=== PATIENT | female | born 1995 | race Two or more races ===

== ENCOUNTER 2024-01-17 04:06 | Emergency (ER) | payer MEDICAID ==
[~2024-01-17] VITALS: Ht 152.4 cm; Wt 73.0 kg
[2024-01-17 06:03] LABS: Basophils # (auto) 0.1 10 ^3/uL (0-0.2); Basophils % (auto) 0.5 % (0.0-2.0); Eosinophils # (auto) 0.2 10 ^3/uL (0-0.8); Hemoglobin 11.9 g/dL (12.2-16.2); Lymphocytes # (auto) 3.1 10 ^3/uL (0.4-5.4); Lymphocytes % (auto) 31.2 % (10.0-50.0); Mean Corpuscular Hemoglobin 29.5 pg (28.0-32.0); Mean Corpuscular Hgb Conc. 33.9 g/dL (32.0-36.0); Mean Corpuscular Volume 86.9 fL (80.0-100.0); Monocytes # (auto) 0.7 10 ^3/uL (0-1.3); Neutrophils # (auto) 5.9 10 ^3/uL (1.6-8.6); Neutrophils % (auto) 59.3 % (37.0-80.0); Nucleated Red Blood Cells % 0.1 %; Red Blood Cells 4.03 10^6/uL (4.0-5.20); Red Cell Distribution Width 14.4 % (11.8-14.3); White Blood Cell 9.9 10^3/uL (4.4-10.8)
[2024-01-17 06:10] VITALS: PULSE 87; RESP 16; O2SAT 97
[2024-01-17 06:17] LABS: INR 0.96 (0.9-1.15); Partial Thromboplastin Time 25.8 SEC (24.5-34.5); Prothrombin Time 10.2 sec (9.3-11.8)
[2024-01-17 06:18] LABS: Alanine Aminotransferase 27 U/L (7-40); Albumin 3.8 g/dL (3.2-4.8); Alkaline Phosphatase 104 U/L (46-116); Anion Gap 7 (5-15); Aspartate Aminotransferase 19 U/L (13-40); BUN/Creatinine Ratio 16.7 (10.0-20.0); Bilirubin, Total 0.4 mg/dL (0.2-1.0); Blood Urea Nitrogen 8 mg/dL (9-23); Calcium 8.9 mg/dL (8.7-10.4); Carbon Dioxide 23 mmol/L (20-30); Chloride 107 mmol/L (98-107); Glucose 103 mg/dL (74-106); Lipase 48 U/L (12-53); Potassium 3.8 mmol/L (3.5-5.1); Sodium 137 mmol/L (136-145); Total Protein 6.1 g/dL (5.7-8.2)
[2024-01-17] MEDS: SODIUM CHLORIDE 0.9% 1,000 ML IVB ONE (06:44)
[2024-01-17] MEDS: ONDANSETRON HCL 4 MG/2 ML VIAL IV ONE (06:44)
[2024-01-17] MEDS: MORPHINE SULFATE INJ 2 MG/ml SYRG IV ONE (06:45)
[2024-01-17 07:25] LABS: Urine Bacteria FEW /hpf (None Seen); Urine Blood TRACE /uL (Negative); Urine Clarity Turbid (Clear); Urine Color Light-Yellow (Yellow); Urine Mucus FEW (None Seen); Urine Protein, UAD TRACE (Negative); Urine Specific Gravity 1.016 (1.001-1.035); Urine Urobilinogen Normal (Negative); Urine WBC 2 /hpf (0 - 5); Urine pH 6.5 (5.0-9.0)
[2024-01-17 09:00] VITALS: BP 120/65; PULSE 80; RESP 20; TEMP 97.6; O2SAT 96
== END 2024-01-17 09:47 | disposition home or self-care (01) ==
LOC: ER 04:06
DX: Z34.02 Encounter for supervision of normal first pregnancy, second trimester (principal); R10.9 Unspecified abdominal pain; Z3A.17 17 weeks gestation of pregnancy
CPT/HCPCS: 36415; 76805; 80053; 81001; 83690; 84702; 85025; 85610; 85730; 96361; 96374; 96375; 99285; J2270; J2405; J7030

== ENCOUNTER → 2024-03-27 | Outpatient (CLI) | payer MEDICAID ==
[2024-03-27 09:11] LABS: Basophils # (auto) 0 10 ^3/uL (0-0.2); Basophils % (auto) 0.4 % (0.0-2.0); Eosinophils # (auto) 0.1 10 ^3/uL (0-0.8); Eosinophils % (auto) 1.5 % (0.0-7.0); Hematocrit 35.8 % (36.0-46.0); Hemoglobin 12.1 g/dL (12.2-16.2); Lymphocytes % (auto) 20.4 % (10.0-50.0); Mean Corpuscular Hemoglobin 30.1 pg (28.0-32.0); Mean Corpuscular Hgb Conc. 33.8 g/dL (32.0-36.0); Mean Corpuscular Volume 89.1 fL (80.0-100.0); Monocytes # (auto) 0.7 10 ^3/uL (0-1.3); Monocytes % (auto) 6.7 % (0.0-12.0); Neutrophils # (auto) 6.9 10 ^3/uL (1.6-8.6); Nucleated Red Blood Cells % 0.1 %; Red Blood Cells 4.02 10^6/uL (4.0-5.20); Red Cell Distribution Width 13.8 % (11.8-14.3); White Blood Cell 9.8 10^3/uL (4.4-10.8)
[2024-03-27 09:16] LABS: Alanine Aminotransferase 19 U/L (7-40); Albumin 3.8 g/dL (3.2-4.8); Alkaline Phosphatase 122 U/L (46-116); Anion Gap 7 (5-15); Aspartate Aminotransferase 16 U/L (13-40); Calcium 9.1 mg/dL (8.5-10.1); Carbon Dioxide 20 mmol/L (20-30); Chloride 110 mmol/L (98-107); Glucose 94 mg/dL (74-106); Potassium 3.7 mmol/L (3.5-5.1); Sodium 137 mmol/L (136-145)
[2024-03-27 09:17] LABS: Bilirubin, Total 0.4 mg/dL (0.2-1.0); Total Protein 6.3 g/dL (5.7-8.2)
[2024-03-27 09:18] LABS: BUN/Creatinine Ratio 12.5 (10.0-20.0); Blood Urea Nitrogen < 5 mg/dL (9-23)
[2024-03-28 07:06] LABS: RPR Non Reactive (Non Reactive)
[2024-03-28 15:07] LABS: Chlamydia Trachomatis, NAA Negative (Negative); Neisseria gonorrhoeae, NAA Negative (Negative)
== END | disposition home or self-care (01) ==
LOC: LAB 08:36
PROVIDERS: ATTEND Obstetrics & Gynecology
DX: M25.552 Pain in left hip (principal); M25.751 Osteophyte, right hip; M11.251 Other chondrocalcinosis, right hip; M16.11 Unilateral primary osteoarthritis, right hip
CPT/HCPCS: 36415; 80053; 82951; 83036; 85025; 86592; 86850; 86900; 86901

== ENCOUNTER 2024-05-10 14:10 | Observation (INO) | payer MEDICAID ==
[~2024-05-10] VITALS: Ht 152.4 cm; Wt 81.2 kg
[2024-05-10] MEDS ORDERED: PREN-96 PO (14:31)
[2024-05-10] MEDS: TERBUTALINE SULFATE 1 MG/ML 1ML VIAL SC SCH (15:51)
== END 2024-05-10 16:51 | disposition home or self-care (01) ==
LOC: LDRP 14:10
PROVIDERS: ADMIT Obstetrics & Gynecology; ATTEND Obstetrics & Gynecology
DX: O24.419 Gestational diabetes mellitus in pregnancy, unspecified control (principal); O62.9 Abnormality of forces of labor, unspecified; Z3A.34 34 weeks gestation of pregnancy
CPT/HCPCS: 59025; 76818; 81002; 82948; 82962; 94760; 96372; G0378; J3105

== ENCOUNTER 2024-05-14 14:13 | Observation (INO) | payer MEDICAID ==
[~2024-05-14] VITALS: Ht 152.4 cm; Wt 81.6 kg
[~2024-05-14 14:13] MED LIST: PREN-96 PO
[2024-05-14] MEDS: NIFEdipine 10 MG CAP PO ONE (16:00)
== END 2024-05-14 16:55 | disposition home or self-care (01) ==
LOC: LDRP 14:13
PROVIDERS: ADMIT Obstetrics & Gynecology; ATTEND Obstetrics & Gynecology
DX: O47.03 False labor before 37 completed weeks of gestation, third trimester (principal); O24.410 Gestational diabetes mellitus in pregnancy, diet controlled; Z3A.34 34 weeks gestation of pregnancy; Z79.899 Other long term (current) drug therapy
CPT/HCPCS: 59025; 76815; 76818; 81002; 82948; 82962; 94760; G0378

== ENCOUNTER 2024-05-17 09:10 | Observation (INO) | payer MEDICAID ==
[~2024-05-17] VITALS: Ht 152.4 cm; Wt 72.1 kg
[2024-05-17] MEDS: TERBUTALINE SULFATE 1 MG/ML 1ML VIAL SC SCH (10:35)
== END 2024-05-17 11:11 | disposition home or self-care (01) ==
LOC: UNDOADMOB 09:10 → LDRP 09:10 → UNDODISOB 11:11
PROVIDERS: ADMIT Obstetrics & Gynecology; ATTEND Obstetrics & Gynecology
DX: O24.419 Gestational diabetes mellitus in pregnancy, unspecified control (principal); Z3A.34 34 weeks gestation of pregnancy
CPT/HCPCS: 59025; 76818; 81002; 82948; 82962; 94760; G0378; 96372

== ENCOUNTER 2024-05-21 10:17 | Observation (INO) | payer MEDICAID | END 2024-05-21 13:12 | disposition home or self-care (01) | LOC: LDRP 12:05 | PROVIDERS: ADMIT Obstetrics & Gynecology; ATTEND Obstetrics & Gynecology | DX: O24.419 Gestational diabetes mellitus in pregnancy, unspecified control (principal); O62.9 Abnormality of forces of labor, unspecified; Z3A.35 35 weeks gestation of pregnancy | CPT/HCPCS: 59025; 76818; 81002; 82948; 82962; G0378 ==

== ENCOUNTER 2024-05-28 04:30 | Observation (INO) | payer MEDICAID | END 2024-05-28 13:32 | disposition home or self-care (01) | LOC: UNDOADMOB 12:10 → LDRP 12:10 | PROVIDERS: ADMIT Obstetrics & Gynecology; ATTEND Obstetrics & Gynecology | DX: O24.419 Gestational diabetes mellitus in pregnancy, unspecified control (principal); Z3A.36 36 weeks gestation of pregnancy | CPT/HCPCS: 59025; 76818; 81002; 82948; 82962; 94760; G0378 ==

== ENCOUNTER 2024-06-05 09:02 | Observation (INO) | payer MEDICAID | END 2024-06-05 10:08 | disposition home or self-care (01) | LOC: UNDOADMOB 09:02 → LDRP 09:02 → UNDODISOB 10:08 | PROVIDERS: ADMIT Obstetrics & Gynecology; ATTEND Obstetrics & Gynecology | DX: O24.419 Gestational diabetes mellitus in pregnancy, unspecified control (principal); Z3A.37 37 weeks gestation of pregnancy; Z79.899 Other long term (current) drug therapy | CPT/HCPCS: 59025; 76818; 81002; 82948; 82962; 94760; G0378 ==

== ENCOUNTER 2024-06-12 05:54 | Observation (INO) | payer MEDICAID ==
[2024-06-12 10:29] LABS: Urine Bacteria FEW /hpf (None Seen); Urine Blood Negative /uL (Negative); Urine Clarity Turbid (Clear); Urine Color Yellow (Yellow); Urine Hyaline Cast FEW /lpf (0 - 2); Urine Mucus FEW (None Seen); Urine Protein, UAD 1+ (Negative); Urine Specific Gravity 1.019 (1.001-1.035); Urine Urobilinogen Normal (Negative); Urine WBC 4 /hpf (0 - 5); Urine pH 6.5 (5.0-9.0)
[2024-06-12 10:57] LABS: Protein, Urine 56.5 mg/dL (0.0-11.9)
[2024-06-12 10:58] LABS: Urine Protein/Creatinine Ratio 0.61
[2024-06-12 10:59] LABS: Basophils # (auto) 0 10 ^3/uL (0-0.2); Basophils % (auto) 0.4 % (0.0-2.0); Eosinophils # (auto) 0.1 10 ^3/uL (0-0.8); Eosinophils % (auto) 1.1 % (0.0-7.0); Hematocrit 36.7 % (36.0-46.0); Hemoglobin 12.6 g/dL (12.2-16.2); Lymphocytes # (auto) 1.6 10 ^3/uL (0.4-5.4); Lymphocytes % (auto) 19.3 % (10.0-50.0); Mean Corpuscular Hemoglobin 30.1 pg (28.0-32.0); Mean Corpuscular Hgb Conc. 34.3 g/dL (32.0-36.0); Mean Corpuscular Volume 87.9 fL (80.0-100.0); Monocytes # (auto) 0.6 10 ^3/uL (0-1.3); Neutrophils # (auto) 5.8 10 ^3/uL (1.6-8.6); Neutrophils % (auto) 71.2 % (37.0-80.0); Platelet Count (auto) 231 10^3/uL (140-450); Red Blood Cells 4.17 10^6/uL (4.0-5.20); Red Cell Distribution Width 14.5 % (11.8-14.3); White Blood Cell 8.1 10^3/uL (4.4-10.8)
[2024-06-12 11:01] LABS: Alanine Aminotransferase 20 U/L (7-40); Albumin 3.6 g/dL (3.2-4.8); Alkaline Phosphatase 258 U/L (46-116); Anion Gap 10 (5-15); Aspartate Aminotransferase 17 U/L (13-40); Bilirubin, Total 0.4 mg/dL (0.2-1.0); Blood Urea Nitrogen 9 mg/dL (9-23); Calcium 9.2 mg/dL (8.7-10.4); Carbon Dioxide 19 mmol/L (20-30); Chloride 110 mmol/L (98-107); Glucose 101 mg/dL (74-106); Potassium 3.5 mmol/L (3.5-5.1); Sodium 139 mmol/L (136-145); Total Protein 5.9 g/dL (5.7-8.2)
[2024-06-12 11:13] LABS: INR 0.95 (0.9-1.15); Partial Thromboplastin Time 27.3 SEC (24.5-34.5); Prothrombin Time 10.1 sec (9.3-11.8)
[2024-06-12 11:19] LABS: Uric Acid 3.7 mg/dL (3.1-7.8)
== END 2024-06-12 12:08 | disposition home or self-care (01) ==
LOC: LDRP 08:38
PROVIDERS: ADMIT Obstetrics & Gynecology; ATTEND Obstetrics & Gynecology
DX: O24.419 Gestational diabetes mellitus in pregnancy, unspecified control (principal); O62.9 Abnormality of forces of labor, unspecified; Z3A.38 38 weeks gestation of pregnancy; Z86.2 Personal history of diseases of the blood and blood-forming organs and certain disorders involving the immune mechanism
CPT/HCPCS: 36415; 59025; 76818; 80053; 81001; 81002; 82570; 82948; 82962; 84156; 84550; 85025; 85610; 85730; 94760; G0378

== ENCOUNTER 2024-06-14 11:44 | Observation (INO) | payer MEDICAID ==
[2024-06-14 14:18] LABS: Basophils # (auto) 0 10 ^3/uL (0-0.2); Basophils % (auto) 0.5 % (0.0-2.0); Eosinophils # (auto) 0 10 ^3/uL (0-0.8); Eosinophils % (auto) 0.6 % (0.0-7.0); Hematocrit 37.3 % (36.0-46.0); Hemoglobin 12.7 g/dL (12.2-16.2); Lymphocytes # (auto) 1.5 10 ^3/uL (0.4-5.4); Lymphocytes % (auto) 19.3 % (10.0-50.0); Mean Corpuscular Hemoglobin 30.3 pg (28.0-32.0); Mean Corpuscular Hgb Conc. 34.1 g/dL (32.0-36.0); Monocytes # (auto) 0.6 10 ^3/uL (0-1.3); Monocytes % (auto) 7.4 % (0.0-12.0); Neutrophils # (auto) 5.7 10 ^3/uL (1.6-8.6); Neutrophils % (auto) 72.2 % (37.0-80.0); Nucleated Red Blood Cells % 0.1 %; Platelet Count (auto) 234 10^3/uL (140-450); Red Blood Cells 4.19 10^6/uL (4.0-5.20); Red Cell Distribution Width 14.3 % (11.8-14.3); White Blood Cell 7.8 10^3/uL (4.4-10.8)
[2024-06-14 14:40] LABS: Urine Bacteria MANY /hpf (None Seen); Urine Blood Negative /uL (Negative); Urine Clarity Turbid (Clear); Urine Color Yellow (Yellow); Urine Mucus FEW (None Seen); Urine Protein, UAD 1+ (Negative); Urine Specific Gravity 1.022 (1.001-1.035); Urine Urobilinogen Normal (Negative); Urine WBC 10 /hpf (0 - 5); Urine pH 6.5 (5.0-9.0)
[2024-06-14 14:41] LABS: Alanine Aminotransferase 21 U/L (7-40); Albumin 3.7 g/dL (3.2-4.8); Alkaline Phosphatase 259 U/L (46-116); Anion Gap 5 (5-15); Aspartate Aminotransferase 20 U/L (13-40); BUN/Creatinine Ratio 17.3 (10.0-20.0); Bilirubin, Total 0.5 mg/dL (0.2-1.0); Blood Urea Nitrogen 9 mg/dL (9-23); Calcium 9.1 mg/dL (8.7-10.4); Carbon Dioxide 20 mmol/L (20-31); Chloride 111 mmol/L (98-107); Glucose 89 mg/dL (74-106); Potassium 3.9 mmol/L (3.5-5.1); Sodium 136 mmol/L (136-145); Uric Acid 3.8 mg/dL (3.1-7.8)
[2024-06-14 14:44] LABS: Protein, Urine 117.2 mg/dL (1-14)
[2024-06-14 14:45] LABS: INR 0.93 (0.9-1.15); Partial Thromboplastin Time 27.4 SEC (24.5-34.5); Prothrombin Time 9.9 sec (9.3-11.8)
[2024-06-14 14:47] LABS: Creatinine, Urine 164.55 mg/dL (30.0-125.0); Urine Protein/Creatinine Ratio 0.71
== END 2024-06-14 15:20 | disposition home or self-care (01) ==
LOC: LDRP 11:44
PROVIDERS: ADMIT Obstetrics & Gynecology; ATTEND Obstetrics & Gynecology
DX: O24.419 Gestational diabetes mellitus in pregnancy, unspecified control (principal); O13.3 Gestational [pregnancy-induced] hypertension without significant proteinuria, third trimester; Z3A.38 38 weeks gestation of pregnancy
CPT/HCPCS: 36415; 59025; 80053; 81001; 81002; 82570; 84156; 84550; 85025; 85610; 85730; 94760; G0378

== ENCOUNTER 2024-06-16 13:37 | Observation (INO) | payer MEDICAID ==
[2024-06-16 14:57] LABS: Basophils # (auto) 0 10 ^3/uL (0-0.2); Basophils % (auto) 0.5 % (0.0-2.0); Eosinophils # (auto) 0 10 ^3/uL (0-0.8); Eosinophils % (auto) 0.7 % (0.0-7.0); Hematocrit 35.4 % (36.0-46.0); Hemoglobin 12.4 g/dL (12.2-16.2); Lymphocytes # (auto) 1.3 10 ^3/uL (0.4-5.4); Lymphocytes % (auto) 19.1 % (10.0-50.0); Mean Corpuscular Hgb Conc. 35.1 g/dL (32.0-36.0); Mean Corpuscular Volume 88.2 fL (80.0-100.0); Monocytes # (auto) 0.5 10 ^3/uL (0-1.3); Monocytes % (auto) 7.4 % (0.0-12.0); Neutrophils % (auto) 72.3 % (37.0-80.0); Nucleated Red Blood Cells % 0.1 %; Platelet Count (auto) 235 10^3/uL (140-450); Red Blood Cells 4.02 10^6/uL (4.0-5.20); Red Cell Distribution Width 14.3 % (11.8-14.3); White Blood Cell 6.9 10^3/uL (4.4-10.8)
[2024-06-16 15:07] LABS: Alanine Aminotransferase 17 U/L (7-40); Alkaline Phosphatase 254 U/L (46-116); Anion Gap 6 (5-15); Aspartate Aminotransferase 20 U/L (13-40); BUN/Creatinine Ratio 17.9 (10.0-20.0); Blood Urea Nitrogen 10 mg/dL (9-23); Calcium 8.5 mg/dL (8.7-10.4); Carbon Dioxide 20 mmol/L (20-31); Chloride 110 mmol/L (98-107); Glucose 99 mg/dL (74-106); Potassium 3.9 mmol/L (3.5-5.1); Sodium 136 mmol/L (136-145); Uric Acid 4.5 mg/dL (3.1-7.8)
[2024-06-16 15:08] LABS: Albumin 3.6 g/dL (3.2-4.8); Bilirubin, Total 0.4 mg/dL (0.2-1.0)
[2024-06-16 15:12] LABS: INR 0.94 (0.9-1.15); Partial Thromboplastin Time 27.6 SEC (24.5-34.5)
[2024-06-16 15:38] LABS: Urine Bacteria FEW /hpf (None Seen); Urine Blood Negative /uL (Negative); Urine Clarity Clear (Clear); Urine Color Yellow (Yellow); Urine Mucus FEW (None Seen); Urine Protein, UAD 1+ (Negative); Urine Specific Gravity 1.025 (1.001-1.035); Urine Urobilinogen Normal (Negative); Urine WBC 5 /hpf (0 - 5)
[2024-06-16 15:41] LABS: Protein, Urine 94.1 mg/dL (1-14)
[2024-06-16 15:44] LABS: Creatinine, Urine 175.75 mg/dL (30.0-125.0); Urine Protein/Creatinine Ratio 0.54
[2024-06-16 15:45] LABS: Amphetamine Screen, Urine Neg (NEGATIVE); Barbiturate Scree,Urine Neg (NEGATIVE); Benzodiazephine Screen, Urine Neg (NEGATIVE); Cannabinoid Screen, Urine Neg (NEGATIVE); Cocaine Screen, Urine Neg (NEGATIVE); Opiate Scree,Urine Neg (NEGATIVE); Phencyclidine Screen, Urine Neg (NEGATIVE)
== END 2024-06-16 16:15 | disposition home or self-care (01) ==
LOC: LDRP 13:37
PROVIDERS: ADMIT Obstetrics & Gynecology; ATTEND Obstetrics & Gynecology
DX: O24.419 Gestational diabetes mellitus in pregnancy, unspecified control (principal); O14.93 Unspecified pre-eclampsia, third trimester; O62.9 Abnormality of forces of labor, unspecified; Z3A.38 38 weeks gestation of pregnancy; Z79.899 Other long term (current) drug therapy
CPT/HCPCS: 36415; 59025; 76818; 80053; 80307; 81001; 81002; 82570; 84156; 84550; 85025; 85610; 85730; 86592; 86780; 86803; 86850; 86900; 86901; 94760; G0378

== ENCOUNTER 2024-06-17 01:24 | Inpatient (IN) | payer MEDICAID ==
[~2024-06-17] VITALS: Ht 152.4 cm; Wt 68.0 kg
[2024-06-17] MEDS ORDERED: MORPHINE SULFATE INJ 2 MG/ml SYRG IV PRN (08:45)
[2024-06-17] MEDS ORDERED: NITROGLYCERIN 0.4 MG SL TAB SL PRN (08:45)
[2024-06-17] MEDS ORDERED: LIDOCAINE 2%HCL (LOCAL ANESTH.) INJ 20ML MDV IJ PRN (08:45)
[2024-06-17] MEDS: ACCU-CHEK COMFORT CURVE STRIP VI ONE (08:45)
[2024-06-17] MEDS ORDERED: BUTORPHANOL TARTRATE 2 MG/1 ML VIAL IV PRN ×2 (08:45)
[2024-06-17 09:17] LABS: Basophils # (auto) 0.1 10 ^3/uL (0-0.2); Basophils % (auto) 1.1 % (0.0-2.0); Eosinophils # (auto) 0.1 10 ^3/uL (0-0.8); Eosinophils % (auto) 0.9 % (0.0-7.0); Hematocrit 37.5 % (36.0-46.0); Hemoglobin 12.8 g/dL (12.2-16.2); Lymphocytes # (auto) 1.3 10 ^3/uL (0.4-5.4); Lymphocytes % (auto) 18.7 % (10.0-50.0); Mean Corpuscular Hemoglobin 30.2 pg (28.0-32.0); Mean Corpuscular Volume 88.9 fL (80.0-100.0); Monocytes # (auto) 0.5 10 ^3/uL (0-1.3); Monocytes % (auto) 6.3 % (0.0-12.0); Neutrophils # (auto) 5.2 10 ^3/uL (1.6-8.6); Nucleated Red Blood Cells % 0.1 %; Platelet Count (auto) 235 10^3/uL (140-450); Red Blood Cells 4.22 10^6/uL (4.0-5.20); Red Cell Distribution Width 14.2 % (11.8-14.3); White Blood Cell 7.2 10^3/uL (4.4-10.8)
[2024-06-17 09:29] LABS: Amphetamine Screen, Urine Neg (NEGATIVE); Barbiturate Scree,Urine Neg (NEGATIVE); Benzodiazephine Screen, Urine Neg (NEGATIVE); Cocaine Screen, Urine Neg (NEGATIVE); Opiate Scree,Urine Neg (NEGATIVE)
[2024-06-17 09:30] LABS: Cannabinoid Screen, Urine Neg (NEGATIVE); Phencyclidine Screen, Urine Neg (NEGATIVE)
[2024-06-17 09:32] LABS: Alanine Aminotransferase 18 U/L (7-40); Albumin 3.6 g/dL (3.2-4.8); Alkaline Phosphatase 271 U/L (46-116); Anion Gap 10 (5-15); Aspartate Aminotransferase 23 U/L (13-40); BUN/Creatinine Ratio 12.8 (10.0-20.0); Bilirubin, Total 0.5 mg/dL (0.2-1.0); Blood Urea Nitrogen 6 mg/dL (9-23); Calcium 8.8 mg/dL (8.7-10.4); Carbon Dioxide 17 mmol/L (20-31); Chloride 111 mmol/L (98-107); Glucose 114 mg/dL (74-106); Potassium 3.7 mmol/L (3.5-5.1); Sodium 138 mmol/L (136-145)
[2024-06-17 09:38] LABS: INR 0.94 (0.9-1.15); Partial Thromboplastin Time 27.6 SEC (24.5-34.5)
[2024-06-17] MEDS: LACTATED RINGER'S 1,000 ML IV SCH (09:40)
[2024-06-17 09:44] LABS: Urine Bacteria MOD /hpf (None Seen); Urine Blood Negative /uL (Negative); Urine Clarity Turbid (Clear); Urine Color Yellow (Yellow); Urine Mucus FEW (None Seen); Urine Protein, UAD 1+ (Negative); Urine Specific Gravity 1.018 (1.001-1.035); Urine Urobilinogen Normal (Negative); Urine WBC 5 /hpf (0 - 5)
[2024-06-17] MEDS: miSOPROStol 50 MCG per PRE-CUT 1/2 TAB PO PRN (10:47)
[2024-06-17] MEDS: LACT. RINGERS/OXYTOCIN 20UNITS 500 ML IV ONE ×2 (20:05→20:30)
[2024-06-18 03:07] LABS: Protein, Urine 46.8 mg/dL (1-14)
[2024-06-18 03:10] LABS: Creatinine, Urine 46.79 mg/dL (30.0-125.0)
[2024-06-18 07:17] LABS: Fern Testing Positive
[2024-06-18] MEDS: LACT. RINGERS/OXYTOCIN 20UNITS 1,000 ML IV SCH (09:30)
[2024-06-18] MEDS: NALOXONE HCL 0.4 MG/ML VIAL IV ONE (12:30)
[2024-06-18] MEDS: ePHEDrine SULFATE 50 MG/ML AMP IV ONE (12:30)
[2024-06-18] MEDS: LIDOCAINE HCL 2 %PF INJ 10ML AMP IJ ONE (12:30)
[2024-06-18] MEDS: fentaNYL CITRATE 100 MCG/2 ML VL IV ONE (13:12)
[2024-06-18] MEDS: ROPIVACAINE HCL 200 ML ONE (13:13)
[2024-06-18] MEDS: FAMOTIDINE (10MG/ML) 2ML VL IV ONE (13:43)
[2024-06-19] MEDS ORDERED: cefOXitin 2GM/100ML 100 ML IV ONE (05:45)
[2024-06-19] MEDS: AMPICILLIN SOD 1 GM VL ONE ×2 (05:50→18:51)
[2024-06-19] MEDS: AMPICILLIN SOD 2GM INJ 2 GM in SODIUM CHL 0.9% 100 ML IV SCH (05:54)
[2024-06-19] MEDS: ACETAMINOPHEN 500 MG TAB PO ONE ×2 (06:25→16:16)
[2024-06-19] MEDS: LIDOCAINE HCL 2 %PF INJ 10ML AMP IJ ONE ×2 (06:45→08:38)
[2024-06-19] MEDS: fentaNYL CITRATE 100 MCG/2 ML VL ONE (06:45)
[2024-06-19] MEDS ORDERED: CARBOPROST TROMETHAMINE 250 MCG/1ML VIAL IM PRN ×2 (07:15→18:30)
[2024-06-19 08:06] LABS: RPR Non Reactive (Non Reactive)
[2024-06-19] MEDS: fentaNYL CITRATE 100 MCG/2 ML VL IV ONE ×2 (08:37→14:52)
[2024-06-19] MEDS: ROPIVACAINE HCL 200 ML ONE ×2 (08:40→16:30)
[2024-06-19] MEDS: GENTAMICIN SULFATE 100 MG in D5W 5% 100 ML IV ONE (09:11)
[2024-06-19] MEDS: CALCIUM CARB 500 MG CHEW TAB PO ONE (12:25)
[2024-06-19] MEDS: diphenhdrAMINE HCL 50 MG/1 ML VL IV ONE (12:25)
[2024-06-19] MEDS: LACTATED RINGER'S 1,000 ML IV SCH (16:00)
[2024-06-19] MEDS: MAGNESIUM SULFATE 100 ML IV ONE (16:44)
[2024-06-19] MEDS: MAGNESIUM SULFATE 40MG/ML 1,000 ML IV SCH (16:54)
[2024-06-19] MEDS: MINERAL OIL TOPICAL 10ml TOP ONE ×2 (17:16→19:15)
[2024-06-19] MEDS: OXYTOCIN 10UNIT/ML 1ML VIAL ONE (19:45)
[2024-06-19] MEDS: CARBOPROST TROMETHAMINE 250 MCG/1ML VIAL IM ONE ×4 (20:07→23:16)
[2024-06-19] MEDS: DIPHENOXYLATE W/ATROPINE 2.5 MG TAB PO SCH (20:17)
[2024-06-19] MEDS: miSOPROStol 100 mcg TAB PR ONE (20:24)
[2024-06-19] MEDS: hydrALAZINE HCL 20 MG/ML VL IV PRN (21:08)
[2024-06-19] MEDS: ONDANSETRON HCL 4 MG/2 ML VIAL ONE (21:40)
[2024-06-19] MEDS: ONDANSETRON HCL 4 MG/2 ML VIAL IM ONE (21:42)
[2024-06-19] MEDS: LABETALOL HCL 200 MG TAB PO ONE (22:31)
[2024-06-19] MEDS: hydrALAZINE HCL 20 MG/ML VL IV ONE (22:45)
[2024-06-19 22:50] LABS: Basophils # (auto) 0.1 10 ^3/uL (0-0.2); Basophils % (auto) 0.4 % (0.0-2.0); Eosinophils # (auto) 0 10 ^3/uL (0-0.8); Hematocrit 33.6 % (36.0-46.0); Hemoglobin 11.4 g/dL (12.2-16.2); Lymphocytes # (auto) 0.5 10 ^3/uL (0.4-5.4); Lymphocytes % (auto) 2.6 % (10.0-50.0); Mean Corpuscular Hemoglobin 30.4 pg (28.0-32.0); Mean Corpuscular Volume 89.4 fL (80.0-100.0); Monocytes # (auto) 0.7 10 ^3/uL (0-1.3); Monocytes % (auto) 3.5 % (0.0-12.0); Neutrophils # (auto) 18.3 10 ^3/uL (1.6-8.6); Neutrophils % (auto) 93.5 % (37.0-80.0); Nucleated Red Blood Cells % 0.1 %; Platelet Count (auto) 204 10^3/uL (140-450); Red Blood Cells 3.76 10^6/uL (4.0-5.20); Red Cell Distribution Width 14.5 % (11.8-14.3); White Blood Cell 19.6 10^3/uL (4.4-10.8)
[2024-06-19 23:05] LABS: INR 0.99 (0.9-1.15); Partial Thromboplastin Time 31.8 SEC (24.5-34.5); Prothrombin Time 10.5 sec (9.3-11.8)
[2024-06-19 23:09] LABS: Alanine Aminotransferase 13 U/L (7-40); Albumin 2.9 g/dL (3.2-4.8); Alkaline Phosphatase 191 U/L (46-116); Anion Gap 12 (5-15); Aspartate Aminotransferase 28 U/L (13-40); BUN/Creatinine Ratio 12.6 (10.0-20.0); Bilirubin, Total 0.7 mg/dL (0.2-1.0); Blood Urea Nitrogen 13 mg/dL (9-23); Calcium 8.5 mg/dL (8.7-10.4); Carbon Dioxide 14 mmol/L (20-31); Chloride 109 mmol/L (98-107); Glucose 229 mg/dL (74-106); Potassium 3.6 mmol/L (3.5-5.1); Sodium 135 mmol/L (136-145); Total Protein 4.8 g/dL (5.7-8.2); Uric Acid 6.3 mg/dL (3.1-7.8)
[2024-06-19 23:26] LABS: Protein, Urine 15.7 mg/dL (1-14)
[2024-06-19 23:28] LABS: Creatinine, Urine 16.72 mg/dL (30.0-125.0); Urine Protein/Creatinine Ratio 0.94
[2024-06-19] MEDS: DERMOPLAST 60ML BOTTLE TOP PRN (23:51)
[2024-06-19] MEDS: WITCH HAZEL-GLYCERIN PAD TOP PRN (23:51)
[2024-06-19] MEDS: PHISODERM TOP SOLN 240ML BTL TOP PRN (23:51)
[2024-06-20] VITALS (17 sets, daily range): BP systolic 100–123; BP diastolic 62–76; PULSE 83–101; RESP 16–18; TEMP 97.7–99.1; O2SAT 96–98
[2024-06-20] MEDS: TRANEXAMIC ACID 1,000 MG in SODIUM CHL 0.9% 100 ML IV ONE ×2 (00:20→00:35)
[2024-06-20] MEDS: miSOPROStol 100 mcg TAB PR PRN (00:20)
[2024-06-20] MEDS ORDERED: ONDANSETRON HCL 4 MG/2 ML VIAL IV PRN (00:45)
[2024-06-20] MEDS: IBUPROFEN 800 MG TAB PO SCH (01:42)
[2024-06-20] MEDS ORDERED: LORazepam 2MG/ML-1ML VIAL IV PRN (06:00)
[2024-06-20] MEDS ORDERED: LORazepam 2MG/ML-1ML VIAL IV ONE (06:00)
[2024-06-20] MEDS: MAGNESIUM SULFATE 40MG/ML 1,000 ML IV SCH (06:22)
[2024-06-20] MEDS: ACETAMINOPHEN 325 MG TAB PO PRN (06:25)
[2024-06-20 07:41] LABS: Basophils # (auto) 0 10 ^3/uL (0-0.2); Basophils % (auto) 0.1 % (0.0-2.0); Eosinophils # (auto) 0 10 ^3/uL (0-0.8); Hematocrit 28.7 % (36.0-46.0); Hemoglobin 9.8 g/dL (12.2-16.2); Lymphocytes # (auto) 1.1 10 ^3/uL (0.4-5.4); Lymphocytes % (auto) 5.8 % (10.0-50.0); Mean Corpuscular Hemoglobin 30.4 pg (28.0-32.0); Mean Corpuscular Hgb Conc. 34.3 g/dL (32.0-36.0); Mean Corpuscular Volume 88.7 fL (80.0-100.0); Monocytes # (auto) 1.1 10 ^3/uL (0-1.3); Monocytes % (auto) 6.1 % (0.0-12.0); Neutrophils # (auto) 16.4 10 ^3/uL (1.6-8.6); Nucleated Red Blood Cells % 0.1 %; Platelet Count (auto) 185 10^3/uL (140-450); Red Blood Cells 3.23 10^6/uL (4.0-5.20); Red Cell Distribution Width 14.7 % (11.8-14.3); White Blood Cell 18.6 10^3/uL (4.4-10.8)
[2024-06-20] MEDS: GENTAMICIN SULFATE 280 MG in D5W 5% 100 ML IV SCH (09:21)
[2024-06-20] MEDS: LABETALOL HCL 200 MG TAB PO SCH (10:59)
[2024-06-20] MEDS ORDERED: GENTAMICIN PER PHARMACY 0 ML IV SCH (11:00)
[2024-06-20] MEDS ORDERED: AMPICILLIN SOD 2GM INJ 2 GM in SODIUM CHL 0.9% 100 ML IV SCH (19:00)
[2024-06-20] MEDS: AMPICILLIN SOD 2GM INJ 2 GM in SODIUM CHL 0.9% 100 ML IV SCH (19:01)
[2024-06-20] MEDS: DOCUSATE SOD 100 MG CAP PO SCH (21:57)
[2024-06-21 03:05] VITALS: BP 119/70; PULSE 71; RESP 16; TEMP 97.9; O2SAT 98
[2024-06-21 07:00] VITALS: BP 111/63; PULSE 71; RESP 16; TEMP 97.8; O2SAT 99
[2024-06-21 14:34] VITALS: BP 118/78; PULSE 83; RESP 16; TEMP 98.6; O2SAT 99
== END 2024-06-21 17:00 | disposition home or self-care (01) | DRG 560 ==
LOC: UNDOADMIN 07:30 → LDRP 07:30
PROVIDERS: ADMIT Obstetrics & Gynecology; ATTEND Obstetrics & Gynecology
PROC: 10E0XZZ Delivery of Products of Conception, External Approach (ICD-10-PCS; principal; 2024-06-20)
PROC: 3E0R3BZ Introduction of Anesthetic Agent into Spinal Canal, Percutaneous Approach (ICD-10-PCS; 2024-06-20)
PROC: 00HU33Z Insertion of Infusion Device into Spinal Canal, Percutaneous Approach (ICD-10-PCS; 2024-06-20)
PROC: 0KQM0ZZ Repair Perineum Muscle, Open Approach (ICD-10-PCS; 2024-06-20)
PROC: 3E033VJ Introduction of Other Hormone into Peripheral Vein, Percutaneous Approach (ICD-10-PCS; 2024-06-20)
DX: O14.04 Mild to moderate pre-eclampsia, complicating childbirth (principal); Z37.0 Single live birth; O41.1230 Chorioamnionitis, third trimester, not applicable or unspecified; O24.420 Gestational diabetes mellitus in childbirth, diet controlled; O72.1 Other immediate postpartum hemorrhage; Z3A.39 39 weeks gestation of pregnancy; O76 Abnormality in fetal heart rate and rhythm complicating labor and delivery; O69.81X0 Labor and delivery complicated by cord around neck, without compression, not applicable or unspecified; O77.0 Labor and delivery complicated by meconium in amniotic fluid; O70.1 Second degree perineal laceration during delivery; O66.0 Obstructed labor due to shoulder dystocia
CPT/HCPCS: 36415; 59025; 59409; 62282; 80053; 80170; 80307; 81001; 81002; 82570; 82948; 82962; 83735; 84156; 84550; 85025; 85610; 85730; 86592; 86803; 86850; 86900; 86901; 87340; 94760; 94762; 96360; 96361; 96365; 96366; 96372; 96374; 96375; G0378; J2405; J2590; J3490; J7060